=== PATIENT | male | born 1955 | race American Indian/Alaskan Native ===

== ENCOUNTER 2016-06-24 14:22 | Emergency (ER) | payer SELFPAY ==
--- NOTE | 2016-06-24 15:39 | Emergency Department Report ---
Chief Complaint: Urogenital-Male Stated Complaint: BLOOD IN URINE Time Seen by Provider: 06/24/16 15:34 - HPI History of Present Illness: A 10-year-old male comes in for urinary incontinence this a.m., patient states he has been burning with urination 3 years this a.m. he urinated on himself and had flank blood in urine. Patient denies any trauma noted he does admit to increased frequency with no pain. - Exam Vital Signs: Vital Signs 06/24/16 14:41 Temperature 98.1 F Pulse Rate 87 Respiratory 16 Rate Blood Pressure 128/90 O2 Sat by Pulse 98 Oximetry Physical Exam: Patient's alert and oriented 3 no acute distress cardiovascular S1-S2 regular rate and rhythm respiratory clear to auscultation bilateral MSE screening note: Focused history and physical exam performed. Due to findings the following was ordered: Patient's been evaluated by this provider we will order a CBC BMP urinalysis. Patient to be evaluated by the main ER ED Disposition for MSE Condition: Stable
[2016-06-24 16:17] LABS: Hematocrit 44.6 % (35.5-45.6); Hemoglobin 15.1 gm/dl (11.8-15.2); Mean Corpuscular HGB Conc 34 % (32-34); Mean Corpuscular Hemoglobin 30 pg (28-32); Mean Corpuscular Volume 87 fl (84-94); Platelet Count 222 K/mm3 (140-440); Red Blood Count 5.12 M/mm3 (3.65-5.03); Red Cell Distribution Width 14.5 % (13.2-15.2); White Blood Count 13.9 K/mm3 (4.5-11.0)
[2016-06-24 16:28] LABS: Chloride 101.5 mmol/L (98-107); Potassium 4.1 mmol/L (3.6-5.0)
[2016-06-24 17:06] LABS: Bacteria,Urine 2+ /HPF (Negative); Bilirubin,Urine NEG (Negative); Blood,Urine LG (Negative); Ketones,Urine TR mg/dL (Negative); Leukocyte Esterase,Urine LG (Negative); Mucus,Urine 2+ /HPF; Nitrite,Urine POS (Negative)
[2016-06-24 17:09] LABS: RBC,Urine > 182.0 /HPF (0.0-6.0)
[2016-06-24 17:10] LABS: WBC,Urine > 182.0 /HPF (0.0-6.0)
[2016-06-24] MEDS ORDERED: ROCEPHIN ONE (20:13)
--- NOTE | 2016-06-24 20:22 | Emergency Department Report ---
ED Male HPI - General Chief complaint: Urogenital-Male Stated complaint: BLOOD IN URINE Time Seen by Provider: 06/24/16 15:34 Source: patient Mode of arrival: Ambulatory Limitations: No Limitations - History of Present Illness Initial comments: 60-year-old male comes in for urinary dysuria for 3 years. Patient reports that today he woke up with urinary incontinence. That's which brought him in. . Patient reports he urinated some flank blood. He reports that he had urinary incontinence He denies any trauma he does admit to increased frequency denies any pain - Related Data Previous Rx's Medication Instructions Recorded Last Taken Type Nitrofurantoin [place]/M-Cryst 100 mg PO Q12HR #14 capsule 06/24/16 Unknown Rx [Macrobid CAP] Allergies Allergy/AdvReac Type Severity Reaction Status Date / Time No Known Allergies Allergy Unverified 06/24/16 15:36 ED Review of Systems ROS: Stated complaint: BLOOD IN URINE Other details as noted in HPI Constitutional: denies: chills, fever Genitourinary: dysuria, frequency, hematuria ED Past Medical Hx - Medications Home Medications: Home Medications Medication Instructions Recorded Confirmed Last Taken Type Nitrofurantoin [place]/M-Cryst 100 mg PO Q12HR #14 capsule 06/24/16 Unknown Rx [Macrobid CAP] ED Physical Exam - General Limitations: No Limitations - Head Head exam: Present: atraumatic - Eye Eye exam: Present: normal appearance - Respiratory Respiratory exam: Present: normal lung sounds bilaterally - Cardiovascular Cardiovascular Exam: Present: regular rate, normal rhythm - GI/Abdominal GI/Abdominal exam: Present: soft, tenderness (suprapubic). Absent: distended ED Course Vital Signs 06/24/16 14:41 Temperature 98.1 F Pulse Rate 87 Respiratory 16 Rate Blood Pressure 128/90 O2 Sat by Pulse 98 Oximetry ED Medical Decision Making - Lab Data Result diagrams: 06/24/16 15:55 06/24/16 15:55 - Medical Decision Making She's been evaluated by this provider KATHLEEN. Consult with Dr. De Guzman he reviewed the labs as well as I did we recommend Rocephin 1 g IM now and would discharge patient on Macrobid patient verbalized understanding Critical care attestation.: If time is entered above; I have spent that time in minutes in the direct care of this critically ill patient, excluding procedure time. ED Disposition Clinical Impression: UTI (urinary tract infection) Qualifiers: Urinary tract infection type: urethritis Qualified Code(s): N34.2 - Other urethritis Disposition: DISCHARGED TO HOME OR SELFCARE Is pt being admited?: No Does the pt Need Aspirin: No Condition: Stable Instructions: Urinary Incontinence (ED), Urinary Tract Infection in Men (ED) Additional Instructions: All medication as prescribed is very important to see the executive director of nursing within 3- 5 days. Prescriptions: Nitrofurantoin [place]/M-Cryst [Macrobid CAP] 100 mg PO Q12HR #14 capsule Referrals: PRIMARY CARE, [Primary Care Provider] - 3-5 Days AKHIL JONSE MD [Staff Physician] - 3-5 Days
[2016-06-24] MEDS ORDERED: ROCEPHIN IM ONE (20:35)
[2016-06-24] MEDS ORDERED: XYLOCAINE 1% MPF 5 mL INFILTRATI ONE (20:35)
[2016-06-24 20:57] VITALS: BP 146/98
== END 2016-06-24 21:39 | disposition home or self-care (01) ==
LOC: ED 14:22
DX: N34.2 Other urethritis (principal)
CPT/HCPCS: 36415; 80048; 81001; 82962; 85027; 96372; 99283; J0696